=== PATIENT | male | born 1970 | race Caucasian/White ===

== ENCOUNTER 2019-06-25 18:08 | Emergency (ER) | payer MEDICAID, OTHER ==
[~2019-06-25] VITALS: Ht 172.7 cm; Wt 72.7 kg
[~2019-06-25 18:08] MED LIST: ALBU8HFA PO; IBUP-1574 PO
[2019-06-25 18:28] VITALS: BP 153/104
[2019-06-25] MEDS ORDERED: SULF1TAB49 PO (19:06)
[2019-06-25] MEDS ORDERED: CEPH500C5 PO (19:06)
== END 2019-06-25 19:19 | disposition home or self-care (01) ==
LOC: ER 18:09
DX: L02.01 Cutaneous abscess of face (principal); L02.414 Cutaneous abscess of left upper limb; L02.413 Cutaneous abscess of right upper limb; Z79.2 Long term (current) use of antibiotics; Z79.899 Other long term (current) drug therapy
CPT/HCPCS: 99283

== ENCOUNTER 2019-07-16 11:10 | Emergency (ER) | payer MEDICAID ==
[~2019-07-16] VITALS: Ht 172.7 cm; Wt 71.3 kg
[2019-07-16 11:21] VITALS: BP 145/100
[2019-07-16] MEDS ORDERED: CEPH250T PO (12:04)
[2019-07-16] MEDS ORDERED: SULF1TAB49 PO (12:04)
== END 2019-07-16 12:18 | disposition home or self-care (01) ==
LOC: ER 11:11
DX: H60.02 Abscess of left external ear (principal); Z79.899 Other long term (current) drug therapy
CPT/HCPCS: 99283

== ENCOUNTER → 2021-10-26 | Emergency (ER) | payer MEDICAID ==
[~2021-10-26] VITALS: Ht 172.7 cm; Wt 72.7 kg
[2021-10-26 09:27] VITALS: BP 152/106
== END | disposition home or self-care (01) ==
LOC: ER 09:03
DX: J06.9 Acute upper respiratory infection, unspecified (principal); Z20.822 Contact with and (suspected) exposure to COVID-19; F17.210 Nicotine dependence, cigarettes, uncomplicated
CPT/HCPCS: 36415; 99283; U0003

== ENCOUNTER 2025-01-13 19:02 | Emergency (ER) | payer MEDICAID ==
[~2025-01-13] VITALS: Ht 172.7 cm; Wt 65.9 kg
[2025-01-13 19:19] VITALS: TEMP 98.2
[2025-01-13] MEDS: normal saline 1000ML IV soln IVB ONE (19:45)
[2025-01-13 19:47] LABS: BASOPHILS # (AUTO) 0.1 X10'3 (0-0.2); BASOPHILS % (AUTO) 1.1 % (0-1); EOSINOPHILS # (AUTO) 0.3 X10'3 (0-0.9); EOSINOPHILS % (AUTO) 3.7 % (0-6); HEMATOCRIT 40.2 % (42.0-52.0); HEMOGLOBIN 13.6 g/dl (14.0-17.9); LYMPHOCYTES # (AUTO) 2.6 X10'3 (1.1-4.8); LYMPHOCYTES % (AUTO) 29.3 % (21-51); MEAN CORPUSCULAR HEMOGLOBIN 30.6 PG (27.0-31.0); MEAN CORPUSCULAR HGB CONC 33.9 g/dL (33.0-36.5); MEAN CORPUSCULAR VOLUME 90.2 FL (78-98); MEAN PLATELET VOLUME 7.9 FL (7.4-10.4); MONOCYTES # (AUTO) 0.9 X10'3 (0-0.9); MONOCYTES % (AUTO) 10.6 % (2-12); NEUTROPHILS # (AUTO) 4.9 X10'3 (1.8-7.7); NEUTROPHILS % (AUTO) 55.3 % (42-75); PLATELET COUNT 339 X10'3 (140-440); RED BLOOD COUNT 4.46 X10'6 (4.70-6.10); RED CELL DISTRIBUTION WIDTH 14.2 % (11.5-14.5); WHITE BLOOD COUNT 8.9 X10'3 (4.5-11.0)
[2025-01-13 20:01] LABS: ALANINE AMINOTRANSFERASE 26 U/L (12-78); ALBUMIN 3.4 G/DL (3.4-5.0); ALBUMIN/GLOBULIN RATIO 1.2 (1.1-1.5); ALKALINE PHOSPHATASE 82 IU/L (46-116); ANION GAP 8 (8-16); ASPARTATE AMINO TRANSFERASE 23 U/L (10-37); BILIRUBIN,TOTAL 0.3 MG/DL (0.1-1.0); BLOOD UREA NITROGEN 10 MG/DL (7-18); BUN/CREATININE RATIO 10.1 (10.0-20.0); CALCIUM 8.4 MG/DL (8.5-10.1); CHLORIDE 105 MMOL/L (99-107); CREATININE 0.99 MG/DL (0.60-1.10); GLUCOSE 128 MG/DL (70-104); POTASSIUM 3.5 MMOL/L (3.5-5.1); SODIUM 139 MMOL/L (135-145); TOTAL CARBON DIOXIDE 25.7 MMOL/L (24-32); TOTAL PROTEIN 6.3 G/DL (6.4-8.2); eCRCL 78 ML/MIN; eGFR 78 ML/MIN
[2025-01-13 20:10] LABS: PRO BRAIN NATRIURETIC PEPTIDE 63 PG/ML (0-125)
[2025-01-13 22:00] VITALS: BP 109/74
[2025-01-13 22:15] VITALS: PULSE 82; RESP 19; O2SAT 98
== END 2025-01-13 22:28 | disposition home or self-care (01) ==
LOC: ER 19:03
DX: S00.81XA Abrasion of other part of head, initial encounter (principal); E78.00 Pure hypercholesterolemia, unspecified; R55 Syncope and collapse; E86.0 Dehydration; Z79.1 Long term (current) use of non-steroidal anti-inflammatories (NSAID); W19.XXXA Unspecified fall, initial encounter; Y93.89 Activity, other specified; Y92.89 Other specified places as the place of occurrence of the external cause; Y99.8 Other external cause status
CPT/HCPCS: 36415; 71045; 80053; 83880; 84484; 85025; 93005; 96360; 99285; J7030